=== PATIENT | female | born 1995 | race Two or more races ===

== ENCOUNTER 2023-06-26 17:42 | Emergency (ER) | payer MEDICAID, OTHER ==
[~2023-06-26] VITALS: Ht 144.8 cm; Wt 73.0 kg
[2023-06-26 19:35] LABS: Basophils # (auto) 0.1 10 ^3/uL (0-0.2); Basophils % (auto) 0.7 % (0.0-2.0); Eosinophils # (auto) 0.1 10 ^3/uL (0-0.8); Eosinophils % (auto) 0.7 % (0.0-7.0); Hematocrit 42.3 % (36.0-46.0); Hemoglobin 14.2 g/dL (12.2-16.2); Lymphocytes # (auto) 2.2 10 ^3/uL (0.4-5.4); Lymphocytes % (auto) 25.5 % (10.0-50.0); Mean Corpuscular Hemoglobin 31.1 pg (28.0-32.0); Mean Corpuscular Hgb Conc. 33.5 g/dL (32.0-36.0); Mean Corpuscular Volume 92.6 fL (80.0-100.0); Monocytes # (auto) 0.7 10 ^3/uL (0-1.3); Monocytes % (auto) 8.4 % (0.0-12.0); Neutrophils # (auto) 5.7 10 ^3/uL (1.6-8.6); Neutrophils % (auto) 64.7 % (37.0-80.0); Nucleated Red Blood Cells % 0.1 %; Red Blood Cells 4.57 10^6/uL (4.0-5.20); Red Cell Distribution Width 12.9 % (11.8-14.3); White Blood Cell 8.7 10^3/uL (4.4-10.8)
[2023-06-26 19:47] LABS: Albumin 4.2 g/dL (3.4-5.0); Calcium 9.7 mg/dL (8.5-10.1); Potassium 3.5 mmol/L (3.5-5.1)
[2023-06-26 19:51] LABS: BUN/Creatinine Ratio 21.1 (10.0-20.0); Bilirubin, Total 0.7 mg/dL (0.2-1.0); Total Protein 8.2 g/dL (6.4-8.2)
[2023-06-26] MEDS ORDERED: ALBUAER3 IN (20:45)
[2023-06-26] MEDS ORDERED: HYDR25CA PO (20:45)
[2023-06-26] MEDS ORDERED: LORazepam 0.5 MG TAB PO ONE (20:45)
[2023-06-26 22:20] VITALS: BP 119/64; PULSE 79; RESP 20; TEMP 98; O2SAT 100
== END 2023-06-26 22:20 | disposition home or self-care (01) ==
LOC: EDBD 17:42 → ER 17:42
DX: R07.89 Other chest pain (principal); F41.9 Anxiety disorder, unspecified
CPT/HCPCS: 36415; 71045; 80053; 84484; 85025; 93005